=== PATIENT | male | born 1990 | race Caucasian/White ===

== ENCOUNTER 2018-12-02 06:09 | Emergency (ER) | payer MEDICAID, OTHER ==
[~2018-12-02] VITALS: Ht 185.4 cm; Wt 98.1 kg
[~2018-12-02 06:09] MED LIST: HYDR-4383 PO; ONDA4TAB6 PO
[2018-12-02 06:21] VITALS: BP 113/79
[2018-12-02] MEDS ORDERED: loperamide 2mg capsule PO ONE (06:50)
[2018-12-02] MEDS ORDERED: ibuprofen tablet 400 MG TABLET PO ONE (06:50)
[2018-12-02] MEDS ORDERED: acetaminophen 325mg tablet PO ONE (06:50)
[2018-12-02] MEDS ORDERED: LOPE2CAP PO (06:51)
[2018-12-02] MEDS ORDERED: ACET-2615 PO (06:51)
== END 2018-12-02 07:13 | disposition home or self-care (01) ==
LOC: ER 06:11
DX: R10.33 Periumbilical pain (principal); R19.7 Diarrhea, unspecified; F12.90 Cannabis use, unspecified, uncomplicated; Z88.0 Allergy status to penicillin; Z79.899 Other long term (current) drug therapy; Z56.0 Unemployment, unspecified
CPT/HCPCS: 99284